=== PATIENT | female | born 1965 | race Caucasian/White ===

== ENCOUNTER 2016-08-16 14:20 | Emergency (ER) | payer BC, MEDICAID ==
[~2016-08-16] VITALS: Wt 81.8 kg
[2016-08-16] MEDS ORDERED: IBUPROFEN 600 MG TAB PO ONE (15:00)
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
[2016-08-16] MEDS ORDERED: IBUP-1542 PO (15:38)
[2016-08-16] MEDS ORDERED: D-ME473S18 PO (15:38)
[2016-08-16] MEDS ORDERED: CYCL5TAB PO (15:38)
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
== END 2016-08-16 16:05 | disposition home or self-care (01) ==
LOC: FTE 14:20
DX: S16.1XXA Strain of muscle, fascia and tendon at neck level, initial encounter (principal); S46.911A Strain of unspecified muscle, fascia and tendon at shoulder and upper arm level, right arm, initial encounter; R05 Cough; V49.50XA Passenger injured in collision with unspecified motor vehicles in traffic accident, initial encounter
CPT/HCPCS: 73030; Z7502; Z7610

== ENCOUNTER 2017-02-02 22:20 | Inpatient (IN) | payer BC, MEDICAID ==
[~2017-02-02] VITALS: Ht 162.6 cm; Wt 102.0 kg
[~2017-02-02 22:20] MED LIST: CYCL5TAB PO; D-ME473S18 PO; IBUP-1542 PO
[2017-02-03] MEDS ORDERED: SOD CHLORIDE 0.9% 1,000 ML IV STA (01:33)
[2017-02-03] MEDS ORDERED: HYDROmorphONE 1 MG/ML SYG IV STA (01:33)
[2017-02-03] MEDS ORDERED: ONDANSETRON 4 MG INJ IV STA (01:33)
[2017-02-03 01:42] LABS: BASOPHILS % 0.3 % (0.0-2.0); EOSINOPHILS % 0.3 % (0.0-7.0); HEMATOCRIT 36.6 % (37.0-47.0); HEMOGLOBIN 11.6 g/dl (12.0-16.0); LYMPHOCYTES # 0.9 10^3/ul (0.8-2.9); LYMPHOCYTES % 7.4 % (15.0-51.0); MEAN CORPUSCULAR HEMOGLOBIN 22.7 pg (29.0-33.0); MEAN CORPUSCULAR HGB CONC 31.7 g/dl (32.0-37.0); MEAN CORPUSCULAR VOLUME 71.5 fl (82.0-101.0); MEAN PLATELET VOLUME 10.9 fl (7.4-10.4); MONOCYTE # 0.4 10^3/ul (0.3-0.9); MONOCYTES % 2.9 % (0.0-11.0); NEUTROPHIL # 11.1 10^3/ul (1.6-7.5); NEUTROPHILS % 88.5 % (39.0-77.0); PLATELET COUNT 269 10^3/UL (140-415); RED BLOOD COUNT 5.12 10^6/ul (4.20-5.40); RED CELL DISTRIBUTION WIDTH 15.1 % (11.5-14.5); WHITE BLOOD COUNT 12.6 10^3/ul (4.8-10.8)
[2017-02-03 02:04] LABS: ALANINE AMINOTRANSFERASE 34 IU/L (13-69); ALBUMIN/GLOBULIN RATIO 1.14; ALKALINE PHOSPHATASE 123 IU/L (42-121); ANION GAP 15 (8-16); ASPARTATE AMINO TRANSFERASE 16 IU/L (15-46); BILIRUBIN,INDIRECT 0.7 mg/dl (0-1.1); BILIRUBIN,TOTAL 0.7 mg/dl (0.2-1.3); BLOOD UREA NITROGEN 8 mg/dl (7-20); CALCIUM 9.4 mg/dl (8.4-10.2); CARBON DIOXIDE 25 mmol/L (21-31); CHLORIDE 98 mmol/L (97-110); CREATININE 0.54 mg/dl (0.44-1.00); GLUCOSE 391 mg/dl (70-220); POTASSIUM 4.3 mmol/L (3.5-5.1); SODIUM 134 mmol/L (135-144); TOTAL PROTEIN 7.5 g/dl (6.1-8.1)
[2017-02-03 02:17] LABS: TROPONIN-I < 0.012 ng/ml (0.00-0.12)
--- NOTE | 2017-02-03 02:20 | RADRPT ---
PROCEDURE: XR Chest. CLINICAL INDICATION: Abdominal Pain TECHNIQUE: Single frontal view of the chest was obtained COMPARISON: None FINDINGS: The heart and mediastinum are within normal limits. There is mild elevation of the right hemidiaphra gm. The lungs are clear. There is no pleural effusion or pneumothorax. IMPRESSION: No acute pulmonary disease. RPTAT: HRSR Physician Sydni Date Time Electronically viewed and signed by Gudelia Elizalde Physician on 02/03/2017 02:20 RR/
--- NOTE | 2017-02-03 02:50 | RADRPT ---
PROCEDURE: CT Abdomen and Pelvis without contrast. CLINICAL INDICATION: Abdominal pain. TECHNIQUE: CT scan of the abdomen and pelvis was performed on a multidetector high-resolution CT scanner. The patient was scanned without intravenous contrast. Coronal and sagittal reformatted alicja ges were obtained from the axial source images. Images were reviewed on a high-resolution PACS works tation. The total exam CTDI equals 23.23 mGy and the total exam DLP equals 1562.08 mGy-cm. DICOM images are available. One or more of the following dose reduction techniques were used: - Automated exposure control. - Adjustment of the mA and/or kV according to patient size. - Use of iterative reconstruction technique. COMPARISON: None. FINDINGS: CT Abdomen and Pelvis: Lung bases: The lung bases are clear. There is no evidence of cardiomegaly or pericardial effusion. Solid organs: The spleen, pancreas, adrenal glands are unremarkable. The hepatic parenchyma is heterogeneous. Rounded area of decreased attenuation within the right hepa tic dome measuring 3.2 x 2.0 x 2.9 cm is demonstrated on axial image 46. Second area within the post erior right lobe of the liver measures 3.5 x 5.1 cm on axial image 61. A third area within the right lobe of liver measures 3.1 x 3.7 x 1.9 cm on axial image 69. Further evaluation with CT abdomen and pelvis with intravenous contrast is recommended. Biliary: The gallbladder is surgically absent. No evidence of intra or extrahepatic biliary ductal dilatation. GI: Moderate retained debris is present within the stomach. The small bowel is unremarkable. A norm al-appearing appendix is present. There are no art colonic inflammatory changes. : No evidence of hydronephrosis or space occupying renal mass. The urinary bladder is unremarkabl e. LABOR TRAINER: There is an intrauterine device in place. The uterus is not enlarged. There are no adnexal mass es. Peritoneum: No evidence of ascites or pneumoperitoneum. Lymph nodes: No pathologically enlarged lymphadenopathy. Vascular: The abdominal aorta is unremarkable. Osseous structures: No aggressive appearing osteolytic or osteoblastic lesions. Moderate disc space loss L5-S1 with a 5 mm broad-based partially calcified disc protrusion. IMPRESSION: 1. Abnormal liver containing at least 3 rounded lesions of decreased attenuation. Further evaluation with CT examination of the abdomen pelvis utilizing intravenous contrast is recommended. 2. Intrauterine device. RPTAT: HRSR Gudelia Elizalde, Physician Date Time Electronically viewed and signed by Gudelia Elizalde, Physician on 02/03/2017 02:50 RR/
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
[2017-02-03] MEDS ORDERED: NACL 0.9% 3 ML SYG IV SCH (06:30)
[2017-02-03] MEDS ORDERED: ONDANSETRON 4 MG INJ IV PRN (06:30)
[2017-02-03] MEDS ORDERED: DEXTROSE 50% 50 ML SYRINGE IV PRN ×2 (07:00)
[2017-02-03] MEDS ORDERED: GLUCOSE GEL 15 GRAM TUBE PO PRN ×2 (07:00)
[2017-02-03] MEDS ORDERED: GLUCOSE GEL 15 GRAM TUBE BUCCAL PRN (07:00)
[2017-02-03] MEDS ORDERED: GLUCAGON 1 MG INJ IM PRN (07:00)
[2017-02-03] MEDS ORDERED: IOHEXOL 300MG/ML 150 ML BTL ONE (07:35)
[2017-02-03] MEDS ORDERED: SOD CHLORIDE 0.9% 100 ML ONE (07:35)
[2017-02-03] MEDS: SOD CHLORIDE 0.9% 1,000 ML IV SCH ×2 (07:44→20:21)
[2017-02-03] MEDS: INSULIN GLARGINE [LANtus] 3 ML PEN SC SCH ×3 (08:00→20:29)
[2017-02-03] MEDS: INSULIN ASPART [NOVOLOG] 3 ML PEN SC SCH ×4 (08:11→20:28)
[2017-02-03] MEDS ORDERED: HEPARIN 5,000 UNIT/0.5 ML VIAL SC SCH (09:00)
--- NOTE | 2017-02-03 09:48 | RADRPT ---
PROCEDURE: CT Abdomen and Pelvis with contrast. CLINICAL INDICATION: Liver lesion TECHNIQUE: CT of the abdomen and pelvis was performed on a multi-detector scanner following the un complicated IV administration of 100 cc of Omnipaque 300. Arterial, portal venous, and delayed phas e imaging was performed. Coronal and sagittal images were reformatted from the axial data set. One or more of the following dose reduction techniques were used: automated exposure control, adjustment of the mA and/or kV according to patient size, use of iterative reconstruction technique. DICOM alicja ges are available. CTDI = 20.02, 20.35, 19.33 mGy. DLP = 2660.21 mGy-cm. COMPARISON: CT 02/03/2017 FINDINGS: The lung bases are clear. The heart size is normal, without pericardial effusion. Liver demonstrat es 3 benign hemangiomas, measuring up to 4.2 cm in the posterior right lung. Portal and hepatic vein s remain patent. No evidence of hepatic malignancy is identified. Gallbladder surgically absent. Spl enomegaly is noted, measuring 14.4 cm. Biliary tree, pancreas, adrenal glands and kidneys are unrema rkable. No urolithiasis or obstructive uropathy is identified. The stomach is grossly unremarkable. There is no abdominal aortic aneurysm or dissection. There is no retroperitoneal lymphadenopathy. The misty hepatis region is clear. No bowel obstruction, free intraperitoneal air or abscess is identified. Mild retained fecal materia l may indicate constipation. The appendix is well visualized and normal. There is no diverticulosis, diverticulitis or colitis. Urinary bladder is grossly unremarkable. IUD is identified in the lower uterine segment/cervical canal. No pelvic mass, free fluid or lymphadenopathy is identified. The surrounding osseous structures are remarkable for degenerative enthesopathy of the spine. No os teolytic or osteoblastic lesion is detected. IMPRESSION: 1. Liver demonstrates 3 benign hemangiomas, corresponding to abnormalities described on prior nonco ntrast CT report. No evidence of hepatic malignancy is identified. 2. There is mild splenomegaly, measuring 14.4 cm. 3. Gallbladder is surgically absent. 4. Mild retained fecal material may indicate constipation. 5. IUD is seen in abnormal position within the lower uterine segment/cervical canal - consider gyne cologic consultation. RPTAT: AAOO .Dawit Thayer MD, MD Date Time Electronically viewed and signed by .Dawit Thayer MD, MD on 02/03/2017 09:48 .R/
[2017-02-03] MEDS ORDERED: DILTIAZEM 30 MG TAB PO ONE (13:30)
[2017-02-03 14:57] VITALS: TEMP 98.1
[2017-02-03 15:30] VITALS: BP 121/76; PULSE 94; RESP 19
[2017-02-03 15:46] VITALS: Ht 162.6 cm; Wt 102.0 kg
[2017-02-03 16:10] VITALS: PULSE 133
--- NOTE | 2017-02-03 16:12 | PN ---
Date/Time of Note Date/Time of Note DATE: 02/03/17 TIME: 16:10 Assessment/Plan VTE Prophylaxis VTE Prophylaxis Intervention: LMWH Assessment/Plan Chief Complaint/Hosp Course Subjective: Events noted. A. fib appears new onset Objective: Heart rate 90-130 Physical exam No pallor icterus adenopathy irreg no m/r/g This present nontender nondistended no RG No edema Assessment and plan 1. Acute syncope? Check CT brain; moderate stable check orthostatics 2. Acute loss of consciousness? 3. Anemia 4. Diabetes metabolic syndrome 5. Nonadherence 6. Hepatic meningiomas Problems: Exam/Review of Systems Vital Signs Vitals Vital Signs Date Time Temp Pulse Resp B/P Pulse Ox O2 Delivery O2 Flow Rate FiO2 02/03/17 14:57 98.1 110 22 110/71 98 Room Air Results Result Diagram: 02/03/17 0120 02/03/17 0120 Results 24 hrs Laboratory Tests Test 02/02/17 22:29 02/03/17 01:20 02/03/17 08:05 02/03/17 11:36 Bedside Glucose 345 H 323 H 252 H White Blood Count 12.6 H Red Blood Count 5.12 Hemoglobin 11.6 L Hematocrit 36.6 L Mean Corpuscular Volume 71.5 L Mean Corpuscular Hemoglobin 22.7 L Mean Corpuscular Hemoglobin Concent 31.7 L Red Cell Distribution Width 15.1 H Platelet Count 269 Mean Platelet Volume 10.9 H Neutrophils % 88.5 H Lymphocytes % 7.4 L Monocytes % 2.9 Eosinophils % 0.3 Basophils % 0.3 Nucleated Red Blood Cells % 0.0 Neutrophils # 11.1 H Lymphocytes # 0.9 Monocytes # 0.4 Eosinophils # 0.0 Basophils # 0.0 Nucleated Red Blood Cells # 0.0 Sodium Level 134 L Potassium Level 4.3 Chloride Level 98 Carbon Dioxide Level 25 Anion Gap 15 Blood Urea Nitrogen 8 Creatinine 0.54 Glucose Level 391 H Calcium Level 9.4 Total Bilirubin 0.7 Direct Bilirubin 0.00 Indirect Bilirubin 0.7 Aspartate Amino Transf (AST/SGOT) 16 Alanine Aminotransferase (ALT/SGPT) 34 Alkaline Phosphatase 123 H Troponin I < 0.012 Total Protein 7.5 Albumin 4.0 Globulin 3.50 H Albumin/Globulin Ratio 1.14 Lipase 44 Medications Medications Current Medications Sodium Chloride (NS) 1,000 ml @ 75 mls/hr [id number] IV Last administered on 07:44; Admin Dose 75 MLS/HR; Start 02/03/17 at 06:18; Stop 02/03/17 at 23:00 Ondansetron HCl (Zofran Inj) 4 mg Q6H PRN IV NAUSEA AND/OR VOMITING Last administered on 02/03/17 13:52; Admin Dose 4 MG; Start 02/03/17 at 06:30 Acetaminophen (Tylenol Tab) 650 mg Q6H PRN PO PAIN LEVEL 1-3 OR FEVER; Start 02/03/17 at 06:30 Morphine Sulfate (morphine) 2 mg Q4H PRN IV SEVERE PAIN LEVEL 7-10; Start at 06:30 Heparin Sodium (Porcine) (Heparin (5000 Units/0.5 ml)) 5,000 unit Q12 SC Last administered on 02/03/17 08:46; Admin Dose 5,000 UNIT; Start 02/03/17 at 09: 00 Diagnostic Test (Pha) (Accu-Chek) 1 ea 02 XX ; Start 02/04/17 at 02:00 Insulin Glargine (Lantus) 18 unit DAILY@08 SC Last administered on 02/03/17 08:09; Admin Dose 18 UNIT; Start 02/03/17 at 06:30 Miscellaneous Information 1 ea NOTE XX ; Start 02/03/17 at 07:00 Glucose (Glutose) 15 gm Q15M PRN PO DECREASED GLUCOSE; Start 02/03/17 at 07:00 Glucose (Glutose) 22.5 gm Q15M PRN PO DECREASED GLUCOSE; Start 02/03/17 at 07: 00 Dextrose (D50w Syringe) 25 ml Q15M PRN IV DECREASED GLUCOSE; Start 02/03/17 at 07:00 Dextrose (D50w Syringe) 50 ml Q15M PRN IV DECREASED GLUCOSE; Start 02/03/17 at 07:00 Glucagon (Glucagen) 1 mg Q15M PRN IM DECREASED GLUCOSE; Start 02/03/17 at 07: 00 Glucose (Glutose) 15 gm Q15M PRN BUCCAL DECREASED GLUCOSE; Start 02/03/17 at 07:00 MANAN ALONSO MD Feb 03, 2017 16:12
[2017-02-03] MEDS: DILTIAZEM 30 MG TAB GTB SCH ×2 (17:36→23:28)
[2017-02-03] MEDS: ONDANSETRON 4 MG INJ IV PRN (18:12)
[2017-02-03 18:22] VITALS: BP_SYST 131; BP_SYST 63; BP_SYST 82; BP_DIAS 45; BP_DIAS 63; BP_DIAS 77; PULSE 89
[2017-02-03] MEDS ORDERED: SOD CHLORIDE 0.9% 1,000 ML IV ONE (18:30)
[2017-02-03] MEDS: BISACODYL (EC) 5 MG TAB PO SCH (18:33)
[2017-02-03 19:55] LABS: ADD UMIC YES; UR ASCORBIC ACID 40 mg/dL (NEGATIVE); UR BACTERIA FEW /HPF (NONE SEEN); UR BILIRUBIN (Dip) NEGATIVE (NEGATIVE); UR BLOOD (Dip) 3+ mg/dL (NEGATIVE); UR CLARITY TURBID (CLEAR); UR COLOR YELLOW (YELLOW); UR GLUCOSE (Dip) 3+ mg/dL (NEGATIVE); UR KETONES (Dip) 2+ mg/dL (NEGATIVE); UR LEUKOCYTE ESTERASE (Dip) 3+ Leu/ul (NEGATIVE); UR MUCUS MODERATE /HPF (NONE SEEN); UR NITRITE (Dip) POSITIVE (NEGATIVE); UR RBC > 182 /HPF (0-5); UR SPECIFIC GRAVITY (Dip) 1.028 (1.003-1.030); UR SQUAMOUS EPITHELIAL CELL MANY /HPF (FEW); UR TOTAL PROTEIN (Dip) 2+ mg/dl (NEGATIVE); UR UROBILINOGEN (Dip) 1+ mg/dL (NEGATIVE)
[2017-02-03 20:00] VITALS: PULSE 85
[2017-02-03] MEDS ORDERED: INSULIN GLARGINE [LANtus] 3 ML PEN SC SCH (20:00)
[2017-02-03 20:04] VITALS: BP 125/74; RESP 17
[2017-02-03 20:16] LABS: BARBITURATES Negative (NEGATIVE); BENZODIAZEPINES Negative (NEGATIVE); CANNABINOIDS Negative (NEGATIVE); COCAINE Negative (NEGATIVE); OPIATES Negative (NEGATIVE)
[2017-02-03] MEDS: POLYETHYLENE GLYCOL 17 GM PACKET PO SCH (20:21)
[2017-02-03] MEDS: FAMOTIDINE 20 MG TAB PO SCH (20:21)
[2017-02-03] MEDS: ENOXAPARIN 100 MG/ML SYG SC SCH (20:30)
[2017-02-03] MEDS: morphine 2 MG INJ IV PRN (20:40)
[2017-02-03] MEDS ORDERED: SOD CHLORIDE 0.9% 500 ML IV ONE (23:00)
[2017-02-03] MEDS: SOD CHLORIDE 0.9% 1,000 ML IV ONE (23:18)
[2017-02-03] MEDS: CEFTRIAXONE 1 GM/50 ML (PMX) 50 ML IVPB SCH (23:18)
--- NOTE | 2017-02-03 23:54 | HP ---
Date/Time of Note Date/Time of Note DATE: 02/03/17 TIME: 23:54 Assessment/Plan VTE Prophylaxis VTE Prophylaxis Intervention: heparin Lines/Catheters IV [facility] Type ([facility] Peripheral IV Urinary Cath still in place: No Assessment/Plan Assessment/Plan 1. Abdominal pain/bilateral flank pain -CT abdomen/pelvis showed 3 liver lesions. It is extremely unlikely that her pain is related to this. Will however obtain CT with contrast to evaluate for possible neoplasm. -Check urinalysis and urine culture -Pain management 2. UTI -IV antibiotic -Follow-up culture results 3. Diabetes, with hyperglycemia -Patient stated she has not been taking her medications -We will check A1c. She will be placed on insulin while in-house 4. Sepsis, as evidenced by leukocytosis and tachycardia, most likely secondary to UTI -Continue IV antibiotics and follow-up culture results HPI/ROS Admit Date/Time Admit Date/Time Feb 03, 2017 at 05:10 Hx of Present Illness This is a 52-year-old female with a history of diabetes, not taking her medications who presented to the ER complaining of abdominal pain and dysuria. Pain is diffuse with radiation to her lower back and flank area. Reported associated nausea and having had nonbloody nonbilious vomiting. She also reported painful urination. Denied chest pain, shortness of breath, fever, chills. Patient does appear uncomfortable as a result of abdominal pain. When she presented to the ER, CT abdomen/pelvis without contrast showed 3 liver lesions. Her blood glucose was also elevated at around 400. Sodium 134, WBC 12.6, hemoglobin 11.6 with MCV of 71.5. PMH/Family/Social Social History Smoking Status: Never smoker Exam/Review of Systems Vital Signs Vitals Vital Signs Date Time Temp Pulse Resp B/P Pulse Ox O2 Delivery O2 Flow Rate FiO2 02/03/17 20:04 98.8 85 17 125/74 96 02/03/17 18:22 Room Air Exam Constitutional: other (Patient sleepy and also uncomfortable because of abdominal pain) Head: atraumatic, normocephalic Eyes: PERRL Respiratory: clear to auscultation, normal air movement Cardiovascular: regular rate and rhythm Gastrointestinal: non-tender, soft Extremities: normal pulses Labs Result Diagram: 02/03/1711902/03/17 0120 Medications Medications Current Medications Acetaminophen (Tylenol Tab) 650 mg Q6H PRN PO PAIN LEVEL 1-3 OR FEVER; Start 02/03/17 at 06:30 Morphine Sulfate (morphine) 2 mg Q4H PRN IV SEVERE PAIN LEVEL 7-10 Last administered on 02/03/17 20:40; Admin Dose 2 MG; Start 02/03/17 at 06:30 Diagnostic Test (Pha) (Accu-Chek) 1 ea 02 XX ; Start 02/04/17 at 02:00 Miscellaneous Information 1 ea NOTE XX ; Start 02/03/17 at 07:00 Glucose (Glutose) 15 gm Q15M PRN PO DECREASED GLUCOSE; Start 02/03/17 at 07:00 Glucose (Glutose) 22.5 gm Q15M PRN PO DECREASED GLUCOSE; Start 02/03/17 at 07: 00 Dextrose (D50w Syringe) 25 ml Q15M PRN IV DECREASED GLUCOSE; Start 02/03/17 at 07:00 Dextrose (D50w Syringe) 50 ml Q15M PRN IV DECREASED GLUCOSE; Start 02/03/17 at 07:00 Glucagon (Glucagen) 1 mg Q15M PRN IM DECREASED GLUCOSE; Start 02/03/17 at 07: 00 Glucose (Glutose) 15 gm Q15M PRN BUCCAL DECREASED GLUCOSE; Start 02/03/17 at 07:00 Diltiazem HCl (Cardizem) 30 mg Q6 GTB Last administered on 02/03/17 23:28; Admin Dose 30 MG; Start 02/03/17 at 18:00 Enoxaparin Sodium (Lovenox) 100 mg Q12 SC Last administered on 02/03/17 20:30 ; Admin Dose 100 MG; Start 02/03/17 at 21:00 Influenza Virus Vaccine (Fluzone) 0.5 ml ONCE ONCE IM* ; Start 02/04/17 at 09: 00; Stop 02/04/17 at 09:01 Famotidine (Pepcid) 20 mg BID PO Last administered on 02/03/17 20:21; Admin Dose 20 MG; Start 02/03/17 at 21:00 Ondansetron HCl (Zofran Inj) 4 mg Q4 PRN IV NAUSEA AND/OR VOMITING Last administered on 02/03/17 18:12; Admin Dose 4 MG; Start 02/03/17 at 21:00 Bisacodyl (Dulcolax) 10 mg DAILY PO Last administered on 02/03/17 18:33; Admin Dose 10 MG; Start 02/03/17 at 18:30 Polyethylene Glycol 17 gm 17 gm BID PO Last administered on 02/03/17 20:21; Admin Dose 17 GM; Start 02/03/17 at 21:00 Sodium Chloride 500 ml @ 500 mls/hr Q1H ONCE IV Last administered on 23:22; Admin Dose 500 MLS/HR; Start 02/03/17 at 23:00; Stop 02/03/17 at 23:59 Sodium Chloride (NS) 1,000 ml @ 1,000 mls/hr Q1H ONCE IV ; Start 02/04/17 at 06:00; Stop 02/04/17 at 06:59 Insulin Glargine 18 unit 18 unit DAILY@20 SC Last administered on 02/03/17 20 :29; Admin Dose 18 UNIT; Start 02/03/17 at 20:00 Ceftriaxone Sodium (Rocephin) 50 ml @ 100 mls/hr Q12 IVPB Last administered on 02/03/17 23:18; Admin Dose 100 MLS/HR; Start 02/03/17 at 22:30 DIONTE TRIMBLE MD Feb 03, 2017 23:54
[2017-02-04] VITALS (14 sets, daily range): BP systolic 99–147; BP diastolic 54–85; PULSE 72–82; RESP 17–20
[2017-02-04] MEDS: ACCU-CHEK XX SCH (02:30)
[2017-02-04] MEDS: ONDANSETRON 4 MG INJ IV PRN (04:27)
[2017-02-04] MEDS: morphine 2 MG INJ IV PRN (04:28)
[2017-02-04] MEDS: SOD CHLORIDE 0.9% 1,000 ML IV ONE (05:54)
[2017-02-04] MEDS: DILTIAZEM 30 MG TAB GTB SCH ×4 (05:55→23:50)
[2017-02-04] MEDS: POLYETHYLENE GLYCOL 17 GM PACKET PO SCH ×2 (08:27→20:30)
[2017-02-04] MEDS: CEFTRIAXONE 1 GM/50 ML (PMX) 50 ML IVPB SCH (08:27)
[2017-02-04] MEDS: FAMOTIDINE 20 MG TAB PO SCH ×2 (08:28→20:27)
[2017-02-04] MEDS: BISACODYL (EC) 5 MG TAB PO SCH (08:28)
[2017-02-04] MEDS: ENOXAPARIN 100 MG/ML SYG SC SCH ×2 (08:30→20:30)
[2017-02-04] MEDS: INSULIN ASPART [NOVOLOG] 3 ML PEN SC SCH ×7 (08:31→20:27)
[2017-02-04] MEDS ORDERED: INFLUENZA VIRUS VACCINE 0.5 ML SYG IM* ONE (09:00)
[2017-02-04] MEDS ORDERED: FAMOTIDINE 20 MG TAB PO SCH (09:00)
[2017-02-04 09:41] LABS: BASOPHILS % 0.2 % (0.0-2.0); EOSINOPHILS % 0.3 % (0.0-7.0); HEMATOCRIT 34.7 % (37.0-47.0); HEMOGLOBIN 10.8 g/dl (12.0-16.0); LYMPHOCYTES # 1.3 10^3/ul (0.8-2.9); LYMPHOCYTES % 13.9 % (15.0-51.0); MEAN CORPUSCULAR HEMOGLOBIN 22.8 pg (29.0-33.0); MEAN CORPUSCULAR HGB CONC 31.1 g/dl (32.0-37.0); MEAN CORPUSCULAR VOLUME 73.2 fl (82.0-101.0); MONOCYTE # 0.4 10^3/ul (0.3-0.9); MONOCYTES % 4.4 % (0.0-11.0); NEUTROPHIL # 7.5 10^3/ul (1.6-7.5); NEUTROPHILS % 80.6 % (39.0-77.0); PLATELET COUNT 248 10^3/UL (140-415); RED BLOOD COUNT 4.74 10^6/ul (4.20-5.40); RED CELL DISTRIBUTION WIDTH 15.2 % (11.5-14.5); WHITE BLOOD COUNT 9.3 10^3/ul (4.8-10.8)
[2017-02-04 10:04] LABS: INR 1.09; PROTIME 14.1 Sec (12.2-14.2); PT RATIO 1.1
[2017-02-04 10:05] LABS: IRON 22 ug/dl (35-150)
[2017-02-04 10:15] LABS: TOTAL IRON BINDING CAPACITY 331 ug/dl (241-421)
[2017-02-04 10:15] LABS: ALBUMIN 3.2 g/dl (3.3-4.9); ALBUMIN/GLOBULIN RATIO 1.06; BILIRUBIN,INDIRECT 0.3 mg/dl (0-1.1); BILIRUBIN,TOTAL 0.3 mg/dl (0.2-1.3); CALCIUM 8.2 mg/dl (8.4-10.2); CREATININE 0.52 mg/dl (0.44-1.00); MAGNESIUM 1.9 mg/dl (1.7-2.5); POTASSIUM 3.4 mmol/L (3.5-5.1); TOTAL PROTEIN 6.2 g/dl (6.1-8.1)
[2017-02-04 12:06] LABS: THYROID STIMULATING HORMONE 5.41 MIU/L (0.465-4.680)
[2017-02-04 12:11] LABS: FERRITIN 9.1 ng/ml (11.1-264.0)
--- NOTE | 2017-02-04 14:01 | PN ---
Date/Time of Note Date/Time of Note DATE: 02/04/17 TIME: 14:00 Assessment/Plan VTE Prophylaxis VTE Prophylaxis Intervention: SCD's Lines/Catheters IV Catheter Type (from Nrs): Peripheral IV Urinary Cath still in place: No Assessment/Plan Chief Complaint/Hosp Course S 02/03: Events noted. A. fib appears new onset 02/04: Feels better. Positive BM. Family updated. Dysuria. Objective: Heart rate stable Physical exam No pallor icterus irreg no m/r/g bm+ nontender nondistended no RGR No edema Assessment and plan 1. Acute syncope? Check CT brain; stable check orthostatics 2. Acute loss of consciousness? 3. Anemia 4. Diabetes metabolic syndrome 5. Nonadherence 6. Hepatic meningiomas 7. Acute cystitis? 8. Fecal impaction? Problems: Exam/Review of Systems Vital Signs Vitals Vital Signs Date Time Temp Pulse Resp B/P Pulse Ox O2 Delivery O2 Flow Rate FiO2 02/04/17 12:04 76 02/04/17 11:57 98.1 17 126/71 98 02/04/17 00:18 Nasal Cannula 2.0 Intake and Output 02/03/17 02/03/17 02/04/17 15:00 23:00 07:00 Intake Total 150 ml 550 ml Output Total 200 ml Balance -200 ml 150 ml 550 ml Results Result Diagram: 02/04/17 0825 02/04/17 0825 Results 24 hrs Laboratory Tests Test 02/03/17 16:10 02/03/17 17:35 02/03/17 18:22 02/03/17 20:24 Serum HCG, Qualitative NEGATIVE Bedside Glucose 241 H 218 Urine Color YELLOW Urine Clarity TURBID A Urine pH 6.0 Urine Specific [place] 1.028 Urine Ketones 2+ H Urine Nitrite POSITIVE A Urine Bilirubin NEGATIVE Urine Urobilinogen 1+ H Urine Leukocyte Esterase 3+ H Urine Microscopic RBC > 182 H Urine Microscopic WBC > 182 H Urine Squamous Epithelial Cells MANY A Urine Bacteria FEW A Urine Mucus MODERATE Urine Hemoglobin 3+ H Urine Glucose 3+ H Urine Total Protein 2+ H Urine Opiates Screen Negative Urine Barbiturates Negative Urine Amphetamines Screen Negative Urine Benzodiazepines Screen Negative Urine Cocaine Screen Negative Urine Cannabinoids Negative Test 02/04/17 02:31 02/04/17 07:58 02/04/17 08:25 02/04/17 08:26 Bedside Glucose 215 225 H White Blood Count 9.3 # Red Blood Count 4.74 Hemoglobin 10.8 L Hematocrit 34.7 L Mean Corpuscular Volume 73.2 L Mean Corpuscular Hemoglobin 22.8 L Mean Corpuscular Hemoglobin Concent 31.1 L Red Cell Distribution Width 15.2 H Platelet Count 248 Mean Platelet Volume 11.0 H Neutrophils % 80.6 H Lymphocytes % 13.9 L Monocytes % 4.4 Eosinophils % 0.3 Basophils % 0.2 Nucleated Red Blood Cells % 0.0 Neutrophils # 7.5 Lymphocytes # 1.3 Monocytes # 0.4 Eosinophils # 0.0 Basophils # 0.0 Nucleated Red Blood Cells # 0.0 Sodium Level 141 Potassium Level 3.4 L Chloride Level 104 Carbon Dioxide Level 26 Anion Gap 14 Blood Urea Nitrogen 7 Creatinine 0.52 Glucose Level 229 #H Hemoglobin A1c Calcium Level 8.2 L Phosphorus Level 3.0 Magnesium Level 1.9 Ferritin 9.1 L Total Bilirubin 0.3 Direct Bilirubin 0.00 Indirect Bilirubin 0.3 Aspartate Amino Transf (AST/SGOT) 14 L Alanine Aminotransferase (ALT/SGPT) 30 Alkaline Phosphatase 100 Total Protein 6.2 # Albumin 3.2 L Globulin 3.00 Albumin/Globulin Ratio 1.06 Thyroid Stimulating Hormone (TSH) 5.410 H Prothrombin Time 14.1 Prothrombin Time Ratio 1.1 INR International Normalized Ratio 1.09 Activated Partial Thromboplast Time 37.0 H Iron Level 22 L Total Iron Binding Capacity 331 Percent Iron Saturation 7 L Test 02/04/17 12:19 Bedside Glucose 165 Medications Medications Current Medications Acetaminophen (Tylenol Tab) 650 mg Q6H PRN PO PAIN LEVEL 1-3 OR FEVER; Start 02/03/17 at 06:30 Morphine Sulfate (morphine) 2 mg Q4H PRN IV SEVERE PAIN LEVEL 7-10 Last administered on 02/04/17 04:28; Admin Dose 2 MG; Start 02/03/17 at 06:30 Diagnostic Test (Pha) (Accu-Chek) 1 ea 02 XX Last administered on 02/04/17 02 :30; Admin Dose 1 EA; Start 02/04/17 at 02:00 Miscellaneous Information 1 ea NOTE XX ; Start 02/03/17 at 07:00 Glucose (Glutose) 15 gm Q15M PRN PO DECREASED GLUCOSE; Start 02/03/17 at 07:00 Glucose (Glutose) 22.5 gm Q15M PRN PO DECREASED GLUCOSE; Start 02/03/17 at 07: 00 Dextrose (D50w Syringe) 25 ml Q15M PRN IV DECREASED GLUCOSE; Start 02/03/17 at 07:00 Dextrose (D50w Syringe) 50 ml Q15M PRN IV DECREASED GLUCOSE; Start 02/03/17 at 07:00 Glucagon (Glucagen) 1 mg Q15M PRN IM DECREASED GLUCOSE; Start 02/03/17 at 07: 00 Glucose (Glutose) 15 gm Q15M PRN BUCCAL DECREASED GLUCOSE; Start 02/03/17 at 07:00 Diltiazem HCl (Cardizem) 30 mg Q6 GTB Last administered on 02/04/17 12:31; Admin Dose 30 MG; Start 02/03/17 at 18:00 Enoxaparin Sodium (Lovenox) 100 mg Q12 SC Last administered on 02/04/17 08:30 ; Admin Dose 100 MG; Start 02/03/17 at 21:00 Famotidine (Pepcid) 20 mg BID PO Last administered on 02/04/17 08:28; Admin Dose 20 MG; Start 02/03/17 at 21:00 Ondansetron HCl (Zofran Inj) 4 mg Q4 PRN IV NAUSEA AND/OR VOMITING Last administered on 02/04/17 04:27; Admin Dose 4 MG; Start 02/03/17 at 21:00 Bisacodyl (Dulcolax) 10 mg DAILY PO Last administered on 02/04/17 08:28; Admin Dose 10 MG; Start 02/03/17 at 18:30 Polyethylene Glycol (Miralax) 17 gm BID PO Last administered on 02/04/17 08: 27; Admin Dose 17 GM; Start 02/03/17 at 21:00 Insulin Glargine 18 unit 18 unit DAILY@20 SC Last administered on 02/03/17 20 :29; Admin Dose 18 UNIT; Start 02/03/17 at 20:00 Ceftriaxone Sodium (Rocephin) 50 ml @ 100 mls/hr Q12 IVPB Last administered on 02/04/17 08:27; Admin Dose 100 MLS/HR; Start 02/03/17 at 22:30 MANAN ALONSO MD Feb 04, 2017 14:01
[2017-02-04] MEDS: POTASSIUM CHLORIDE 20 MEQ POWDER FOR ORAL SOLN PO SCH (15:17)
[2017-02-04] MEDS: INSULIN GLARGINE [LANtus] 3 ML PEN SC SCH (20:29)
[2017-02-04] MEDS: ACETAMINOPHEN 325 MG TAB PO PRN (20:37)
[2017-02-05] VITALS (11 sets, daily range): BP systolic 128–162; BP diastolic 72–94; PULSE 67–82; RESP 19–20
[2017-02-05] MEDS: ACCU-CHEK XX SCH (00:01)
--- NOTE | 2017-02-05 03:22 | RADRPT ---
PROCEDURE: CT Brain without contrast. CLINICAL INDICATION: Syncope. TECHNIQUE: A CT of the brain was performed on a GE Exegypeed 64-slice CT scanner utilizing axial imaging from the skull base through the vertex without IV contrast. Multiplanar reformatted images were made. Images were reviewed on a PACS workstation. The CTDIvol is 44.90 mGy and the DLP is 720 .23 mGycm. One or more of the following dose reduction techniques were utilized: 1.) Automated exposure control 2.) Adjustment of the mA +/- kV according to patient's size 3.) Use of iterative reconstruction technique. COMPARISON: None FINDINGS: There is no intracranial hemorrhage, mass effect, or midline shift. No extra-axial fluid collection is seen. There is mild generalized parenchymal volume loss. The ventricles are proportionate in siz e and demonstrate no evidence of hydrocephalus. The density of the brain is normal, and the pink whi te matter differentiation appears well-preserved. The visualized paranasal sinuses and osseous stru ctures are grossly unremarkable. DICOM images are available. IMPRESSION: 1. No acute intracranial pathology. 2. Mild parenchymal volume loss. RPTAT: HRSR Physician Sydni Date Time Electronically viewed and signed by Physician Sydni on 02/05/2017 03:22 RR/
[2017-02-05] MEDS: LEVOFLOXACIN 250 MG TAB PO SCH (06:24)
[2017-02-05] MEDS: DILTIAZEM 30 MG TAB GTB SCH ×3 (06:24→17:39)
[2017-02-05 06:36] LABS: BASOPHILS % 0.4 % (0.0-2.0); EOSINOPHILS # 0.2 10^3/ul (0.0-0.5); EOSINOPHILS % 2.9 % (0.0-7.0); HEMATOCRIT 36.2 % (37.0-47.0); LYMPHOCYTES # 1.4 10^3/ul (0.8-2.9); LYMPHOCYTES % 25.9 % (15.0-51.0); MEAN CORPUSCULAR HEMOGLOBIN 22.4 pg (29.0-33.0); MEAN CORPUSCULAR HGB CONC 30.4 g/dl (32.0-37.0); MEAN CORPUSCULAR VOLUME 73.9 fl (82.0-101.0); MEAN PLATELET VOLUME 10.5 fl (7.4-10.4); MONOCYTE # 0.4 10^3/ul (0.3-0.9); MONOCYTES % 7.6 % (0.0-11.0); NEUTROPHIL # 3.3 10^3/ul (1.6-7.5); NEUTROPHILS % 62.6 % (39.0-77.0); PLATELET COUNT 247 10^3/UL (140-415); RED CELL DISTRIBUTION WIDTH 15.5 % (11.5-14.5); WHITE BLOOD COUNT 5.3 10^3/ul (4.8-10.8)
[2017-02-05 06:54] LABS: ALBUMIN/GLOBULIN RATIO 0.9; BILIRUBIN,INDIRECT 0.3 mg/dl (0-1.1); BILIRUBIN,TOTAL 0.3 mg/dl (0.2-1.3); CALCIUM 8.7 mg/dl (8.4-10.2); CREATININE 0.66 mg/dl (0.44-1.00); MAGNESIUM 2.1 mg/dl (1.7-2.5); PHOSPHORUS 3.1 mg/dl (2.5-4.9); POTASSIUM 3.3 mmol/L (3.5-5.1); TOTAL PROTEIN 6.3 g/dl (6.1-8.1)
[2017-02-05] MEDS: INSULIN ASPART [NOVOLOG] 3 ML PEN SC SCH ×7 (08:00→21:00)
[2017-02-05] MEDS: ONDANSETRON 4 MG INJ IV PRN (08:29)
[2017-02-05] MEDS: ACETAMINOPHEN 325 MG TAB PO PRN (08:30)
[2017-02-05] MEDS: FAMOTIDINE 20 MG TAB PO SCH ×2 (08:31→21:22)
[2017-02-05] MEDS: POTASSIUM CHLORIDE 20 MEQ POWDER FOR ORAL SOLN PO SCH (08:31)
[2017-02-05] MEDS: ENOXAPARIN 100 MG/ML SYG SC SCH ×2 (08:33→21:44)
[2017-02-05] MEDS: BISACODYL (EC) 5 MG TAB PO SCH (08:38)
[2017-02-05] MEDS: POLYETHYLENE GLYCOL 17 GM PACKET PO SCH ×2 (08:38→21:22)
--- NOTE | 2017-02-05 11:08 | DS ---
Date/Time of Note Date/Time of Note DATE: 02/05/17 TIME: 11:07 Discharge Summary Admission/Discharge Info Admit Date/Time Feb 03, 2017 at 05:10 Discharge Date/Time Discharge Diagnosis 1. Obstipation 2. Cystitis 3. New onset A. fib transient 4. Subclinical hypothyroidism Patient Condition: Stable Procedures 2. 2D echo results pending [phone] Hx of Present Illness 52-year-old female better with abdominal symptoms and dysuria. In ER found to have transient A. fib RVR. Hospital Course Being treated for obstipation. Additionally has dysuria acute cystitis. Stable and fit for discharge on Levaquin and MiraLAX. Possibly symptomatic thyroid disease. Consider outpatient Synthroid New onset A. fib. Transient. Chads score less than 2 does not need Coumadin. S 02/03: Events noted. A. fib appears new onset 02/04: Feels better. Positive BM. Family updated. Dysuria. 02/05: No evidence Objective: Heart rate stable Physical exam No pallor icterus irreg no m/r/g bm+ nontender nondistended no RGR No edema Assessment and plan 1. Acute syncope? CT brain/ orthostatics -negative. Vasovagal? 2. Acute loss of consciousness? 3. Anemia 4. Diabetes metabolic syndrome 5. Nonadherence 6. Hepatic meningiomas 7. Acute cystitis? Home on Levaquin 8. Fecal impaction? Improved 9. Paroxysmal A. fib. Rate control as needed 10. Hypothyroidism? Home Meds Discontinued Scripts Cyclobenzaprine Hcl* (Cyclobenzaprine Hcl*) 5 Mg Tablet, 5 MG PO Q8H Y for COUGH , #10 TAB Prov:SAMANTHA SHAW PA-C 08/16/16 Ibuprofen* (Motrin*) 600 Mg Tab, 600 MG PO Q6, #30 TAB Prov:SAMANTHA SHAW PA-C 08/16/16 Dextromethorphan Hb-Promethazine Hcl (Promethazine DM Syrup) 473 Ml Syrup, 5 ML PO Q6H Y for COUGH, #4 OZ Prov:SAMANTHA SHAW PA-C 08/16/16 Primary Care Provider Venu Leavitt Time spent on discharge: > 30 minutes Pending Labs Laboratory Tests Test 02/04/17 12:19 02/04/17 17:32 02/04/17 20:24 02/05/17 06:19 Bedside Glucose 165mg/dL (70-220) 164mg/dL (70-220) 127mg/dL (70-220) White Blood Count 5.310^3/ul (4.8-10.8) Red Blood Count 4.9010^6/ul (4.20-5.40) Hemoglobin 11.0g/dl (12.0-16.0) Hematocrit 36.2% (37.0-47.0) Mean Corpuscular Volume 73.9fl (82.0-101.0) Mean Corpuscular Hemoglobin 22.4pg (29.0-33.0) Mean Corpuscular Hemoglobin Concent 30.4g/dl (32.0-37.0) Red Cell Distribution Width 15.5% (11.5-14.5) Platelet Count 68783^3/UL (140-415) Mean Platelet Volume 10.5fl (7.4-10.4) Neutrophils % 62.6% (39.0-77.0) Lymphocytes % 25.9% (15.0-51.0) Monocytes % 7.6% (0.0-11.0) Eosinophils % 2.9% (0.0-7.0) Basophils % 0.4% (0.0-2.0) Nucleated Red Blood Cells % 0.0/100WBC (0.0-0.0) Neutrophils # 3.310^3/ul (1.6-7.5) Lymphocytes # 1.410^3/ul (0.8-2.9) Monocytes # 0.410^3/ul (0.3-0.9) Eosinophils # 0.210^3/ul (0.0-0.5) Basophils # 0.010^3/ul (0.0-0.1) Nucleated Red Blood Cells # 0.010^3/ul (0.0-0.0) Sodium Level 142mmol/L (135-144) Potassium Level 3.3mmol/L (3.5-5.1) Chloride Level 108mmol/L (97-110) Carbon Dioxide Level 29mmol/L (21-31) Anion Gap 8 (8-16) Blood Urea Nitrogen 6mg/dl (7-20) Creatinine 0.66mg/dl (0.44-1.00) Glucose Level 122mg/dl (70-220) Calcium Level 8.7mg/dl (8.4-10.2) Phosphorus Level 3.1mg/dl (2.5-4.9) Magnesium Level 2.1mg/dl (1.7-2.5) Total Bilirubin 0.3mg/dl (0.2-1.3) Direct Bilirubin 0.00mg/dl (0.00-0.20) Indirect Bilirubin 0.3mg/dl (0-1.1) Aspartate Amino Transf (AST/SGOT) 16IU/L (15-46) Alanine Aminotransferase (ALT/SGPT) 33IU/L (13-69) Alkaline Phosphatase 87IU/L (42-121) Total Protein 6.3g/dl (6.1-8.1) Albumin 3.0g/dl (3.3-4.9) Globulin 3.30g/dl (1.3-3.2) Albumin/Globulin Ratio 0.90 Free Thyroxine 0.97ng/dl (0.64-1.79) Total Triiodothyronine 0.71ng/ml (0.97-1.69) Test 02/05/17 08:35 Bedside Glucose 128mg/dL (70-220) MANAN ALONSO MD Feb 05, 2017 11:08
--- NOTE | 2017-02-05 11:09 | PDOCDIS ---
Discharge Instructions DIAGNOSIS Discharge Diagnosis 1. Obstipation 2. Cystitis 3. New onset A. fib transient 4. Subclinical hypothyroidism CONDITION Patient Condition: Good HOME CARE INSTRUCTIONS: Special Diet: 1800 miya ADA ACTIVITY: Activity Restrictions: Slowly Increase Activity Do not Drive FOLLOW UP/APPOINTMENTS Follow-up Plan Appointment primary 1 week MANAN ALONSO MD Feb 05, 2017 11:09
[2017-02-05] MEDS ORDERED: DILT120C77 PO (11:13)
[2017-02-05] MEDS ORDERED: LEVO250T35 PO (11:13)
[2017-02-05] MEDS ORDERED: POLY17PO6 PO (11:13)
[2017-02-05] MEDS ORDERED: POTA20PA23 PO (11:13)
--- NOTE | 2017-02-05 15:59 | RADRPT ---
Echocardiogram Report Patient Name: AARON FRENCH Gender: Female Date: 1965 Study Date: 04-Feb-2017 Chief Commercial Officer: Tonja [facility] Location: 55[address] Ref. Physician: MANAN ALONSO Quality: Adequate Procedures: Transthoracic echocardiogram with complete 2D, M-Mode, and doppler examination. Indications: Atrial Fibrillation. 2D/M Mode Doppler Measurement Value Normal Ranges Measurement Value Normal Ranges LVIDd 2D 4.3 3.5 - 5.6 cm AV Peak Jacky 1.3 m/sec LVIDs 2D 2.7 2.1 - 4.1 cm AV Peak PG 7.0 mmHg FS 2D 37.0 % LVOT Peak Jacky 1.1 m/sec LVPWd 2D 1.2 0.6 - 1.1 cm LVOT Peak PG 5.0 mmHg IVSd 2D 1.2 0.6 - 1.1 cm MV E Peak Jacky 1.1 m/sec IVS/LVPW 2D 1.0 MV A Peak Jacky 1.1 m/sec AoR Diam 2D 3.0 2.0 - 3.7 cm MV E/A 1.0 LA/Ao 2D 1 0 - 1 MV Decel Time 173 msec EDV 2D 81.2 cm3 MV E/A 1.0 ESV 2D 20.3 cm3 TR Peak Jacky 2.7 m/sec LA Dimen 2D 4.1 2.3 - 4.0 cm TR Peak PG 29.0 mmHg RVSP 31.0 mmHg Findings Left Ventricle: Normal left ventricular systolic function. Normal left ventricular cavity size. Left ventricular wall thickness upper limits of normal. Ejection fraction is visually estimated at 65 %. Tissue Doppler/Mitral Doppler indices are consistent with impaired relaxation (Stage I diastolic dysfunction). Right Ventricle: Normal right ventricular size. Normal right ventricular systolic function. Left Atrium: There is mild enlargement of left atrium. Right Atrium: The right atrium is normal in size. Mitral Valve: Mild mitral leaflet calcification. Mild mitral annular calcification. Trace mitral regurgitation. Aortic Valve: Normal appearance of the aortic valve. No significant aortic stenosis or insufficiency. Tricuspid Valve: Normal appearance of the tricuspid valve. Estimated peak PA systolic pressure 31 mmHg. There is mild tricuspid regurgitation. Pulmonic Valve: Pulmonic valve not well visualized. There is trace pulmonic regurgitation. Pericardium: Normal pericardium with no significant pericardial effusion. Aorta: Normal aortic root. IVC: Normal size and normal respiratory collapse consistent with normal right atrial pressure. Conclusions Normal left ventricular systolic function. Normal left ventricular cavity size. Left ventricular wall thickness upper limits of normal. Ejection fraction is visually estimated at 65 %. Tissue Doppler/Mitral Doppler indices are consistent with impaired relaxation (Stage I diastolic dysfunction). Mild mitral leaflet calcification. Mild mitral annular calcification. Trace mitral regurgitation. Normal appearance of the tricuspid valve. Estimated peak PA systolic pressure 31 mmHg. There is mild tricuspid regurgitation. Normal appearance of the aortic valve. No significant aortic stenosis or insufficiency. Electronically Signed By: Mckinley Perdomo 05-Feb-2017 15:59:07 -0800 Patient Name: AARON FRENCH Study Date: 04-Feb-2017 [id number]
--- NOTE | 2017-02-05 16:10 | RADRPT ---
Vent Rate: 72 bpm RR Interval: 0 msec CO Interval: 156 msec QRS Duration: 86 msec QT Interval: 432 msec QTC Interval: 473 msec P-R-T [place]: 24 - -16 - 7 degrees Normal sinus rhythm Normal ECG Electronically Signed By: Mckinley Perdomo [id number]
[2017-02-05] MEDS ORDERED: POTASSIUM CHLORIDE 20 MEQ POWDER FOR ORAL SOLN PO ONE (16:30)
[2017-02-05] MEDS: INSULIN GLARGINE [LANtus] 3 ML PEN SC SCH (21:33)
[2017-02-06] VITALS (9 sets, daily range): BP systolic 133–175; BP diastolic 80–95; PULSE 72–78; RESP 19–20
[2017-02-06] MEDS: DILTIAZEM 30 MG TAB GTB SCH ×4 (00:49→17:35)
[2017-02-06] MEDS: ACCU-CHEK XX SCH (03:00)
[2017-02-06] MEDS: ONDANSETRON 4 MG INJ IV PRN (03:03)
[2017-02-06 06:33] LABS: BASOPHILS % 0.4 % (0.0-2.0); EOSINOPHILS # 0.1 10^3/ul (0.0-0.5); EOSINOPHILS % 1.7 % (0.0-7.0); HEMATOCRIT 37.4 % (37.0-47.0); HEMOGLOBIN 11.7 g/dl (12.0-16.0); LYMPHOCYTES # 1.1 10^3/ul (0.8-2.9); LYMPHOCYTES % 22.9 % (15.0-51.0); MEAN CORPUSCULAR HEMOGLOBIN 22.8 pg (29.0-33.0); MEAN CORPUSCULAR HGB CONC 31.3 g/dl (32.0-37.0); MEAN CORPUSCULAR VOLUME 72.9 fl (82.0-101.0); MEAN PLATELET VOLUME 10.7 fl (7.4-10.4); MONOCYTE # 0.3 10^3/ul (0.3-0.9); MONOCYTES % 7.1 % (0.0-11.0); NEUTROPHIL # 3.1 10^3/ul (1.6-7.5); NEUTROPHILS % 66.8 % (39.0-77.0); PLATELET COUNT 243 10^3/UL (140-415); RED BLOOD COUNT 5.13 10^6/ul (4.20-5.40); RED CELL DISTRIBUTION WIDTH 15.3 % (11.5-14.5); WHITE BLOOD COUNT 4.6 10^3/ul (4.8-10.8)
[2017-02-06] MEDS: LEVOFLOXACIN 250 MG TAB PO SCH (06:56)
[2017-02-06 07:04] LABS: ALBUMIN 3.5 g/dl (3.3-4.9); ALBUMIN/GLOBULIN RATIO 1.16; BILIRUBIN,INDIRECT 0.2 mg/dl (0-1.1); BILIRUBIN,TOTAL 0.2 mg/dl (0.2-1.3); CALCIUM 8.7 mg/dl (8.4-10.2); CREATININE 0.59 mg/dl (0.44-1.00); POTASSIUM 3.5 mmol/L (3.5-5.1); TOTAL PROTEIN 6.5 g/dl (6.1-8.1)
[2017-02-06] MEDS: INSULIN ASPART [NOVOLOG] 3 ML PEN SC SCH ×6 (07:50→17:34)
[2017-02-06] MEDS: POTASSIUM CHLORIDE 20 MEQ POWDER FOR ORAL SOLN PO SCH (08:20)
[2017-02-06] MEDS: FAMOTIDINE 20 MG TAB PO SCH (08:20)
[2017-02-06] MEDS: BISACODYL (EC) 5 MG TAB PO SCH (08:20)
[2017-02-06] MEDS: POLYETHYLENE GLYCOL 17 GM PACKET PO SCH (08:20)
[2017-02-06] MEDS: ENOXAPARIN 100 MG/ML SYG SC SCH (08:25)
--- NOTE | 2017-02-06 16:36 | PDOCDIS ---
Discharge Instructions DIAGNOSIS Discharge Diagnosis 1. Obstipation 2. Cystitis 3. New onset A. fib transient 4. Subclinical hypothyroidism 5. HTN 6. Malpositioned IUD CONDITION Patient Condition: Stable HOME CARE INSTRUCTIONS: Special Diet: 1800 miya ACTIVITY: Activity Restrictions: Slowly Increase Activity Do not Drive FOLLOW UP/APPOINTMENTS Follow-up Plan Appointment primary 1 week DRUG SAFETY SPECIALIST -1-2wMANAN Osborn MD Feb 06, 2017 16:36
[2017-02-06] MEDS ORDERED: GABA100C14 PO (16:39)
[2017-02-06] MEDS ORDERED: FAMO20TA18 PO (16:39)
[2017-02-06] MEDS ORDERED: LISI-313 PO (16:39)
[2017-02-06] MEDS ORDERED: METO-448 PO (16:39)
[2017-02-06] MEDS ORDERED: LISINOPRIL 5 MG TAB PO SCH (17:00)
[2017-02-06] MEDS ORDERED: GABAPENTIN 100 MG CAP PO SCH (21:00)
[2017-02-06] MEDS ORDERED: METOPROLOL 25 MG TAB PO SCH (21:00)
== END 2017-02-06 19:36 | disposition home or self-care (01) | DRG 872 ==
LOC: FTE 22:20 → MS4 02-03 05:10
PROVIDERS: ADMIT Internal Medicine; ATTEND Internal Medicine
PROC: 3E0234Z Introduction of Serum, Toxoid and Vaccine into Muscle, Percutaneous Approach (ICD-10-PCS; principal; 2017-02-03)
DX: A41.9 Sepsis, unspecified organism (principal); E11.65 Type 2 diabetes mellitus with hyperglycemia; E88.81 Metabolic syndrome and other insulin resistance; I48.0 Paroxysmal atrial fibrillation; R55 Syncope and collapse; I10 Essential (primary) hypertension; B02.29 Other postherpetic nervous system involvement; N30.00 Acute cystitis without hematuria; D64.9 Anemia, unspecified; Z91.14 Patient's other noncompliance with medication regimen; K56.41 Fecal impaction; D18.09 Hemangioma of other sites; E03.9 Hypothyroidism, unspecified; T83.32XA Displacement of intrauterine contraceptive device, initial encounter; Y84.8 Other medical procedures as the cause of abnormal reaction of the patient, or of later complication, without mention of misadventure at the time of the procedure; Z23 Encounter for immunization
CPT/HCPCS: 36415; 70450; 71010; 74176; 74177; 80053; 80307; 81001; 82270; 82306; 82728; 82962; 83036; 83540; 83690; 83735; 84100; 84439; 84443; 84480; 84484; 84703; 85025; 85610; 85730; 90686; 93005; 93306; 96372; 96374; 96375; 96376; J0696; J1170; J1644; J1650; J1815; J2270; J2405; J7030; J7040; Q9967

== ENCOUNTER → 2017-02-12 | Outpatient (CLI) | payer BC ==
[~2017-02-12] MED LIST changes: -CYCL5TAB PO; -D-ME473S18 PO; +FAMO20TA18 PO; +GABA100C14 PO; -IBUP-1542 PO; +LEVO250T35 PO; +LISI-313 PO; +METO-448 PO; +POLY17PO6 PO; +POTA20PA23 PO
== END | disposition home or self-care (01) ==
LOC: DIB 14:01
PROVIDERS: ATTEND Emergency Medicine
DX: E11.9 Type 2 diabetes mellitus without complications (principal); R55 Syncope and collapse